=== PATIENT | male | born 1995 | race Caucasian/White ===

== ENCOUNTER 2019-02-15 05:14 | Day surgery (SDC) | payer OTHER ==
[2019-02-15] VITALS (14 sets, daily range): BP systolic 110–146; BP diastolic 56–83; PULSE 82–100; RESP 15–33; Ht 167.6 cm; Wt 72.0 kg
[~2019-02-15] VITALS: Ht 167.6 cm; Wt 72.0 kg
[~2019-02-15 05:14] MED LIST: BUPIVACAINE 0.25% (MPF) 30 ML INJ INJ ONE; POLYMYXIN/BACITRACIN 1L IRRIG IRR ONE
[2019-02-15] MEDS ORDERED: SOD CHLORIDE 0.9% 1,000 ML IV SCH (06:30)
[2019-02-15] MEDS ORDERED: MIDAZOLAM 1 MG/ML 2 ML INJ ONE (06:50)
[2019-02-15] MEDS ORDERED: FENTAnyl 50 MCG/ML VIAL ONE ×2 (06:50→07:55)
[2019-02-15] MEDS ORDERED: LIDOCAINE 2% (SDV) 5 ML INJ ONE (06:50)
[2019-02-15] MEDS ORDERED: PROPOFOL 20 ML ONE (06:50)
[2019-02-15] MEDS ORDERED: CEFAZOLIN 1 GM INJ ONE (06:50)
[2019-02-15] MEDS ORDERED: BUPIVACAINE 0.25% (MPF) 30 ML INJ ONE (07:13)
[2019-02-15] MEDS ORDERED: ROPIVACAINE 0.5 % 30 ML VIAL ONE (07:34)
[2019-02-15] MEDS ORDERED: FAMOTIDINE 20 MG INJ ONE (07:50)
[2019-02-15] MEDS ORDERED: ONDANSETRON 4 MG INJ ONE (07:50)
[2019-02-15] MEDS ORDERED: METOCLOPRAMIDE 10 MG INJ ONE (07:50)
[2019-02-15] MEDS ORDERED: DEXAMETHASONE 4 MG/ML 5 ML INJ ONE (07:50)
[2019-02-15] MEDS ORDERED: POLYMYXIN/BACITRACIN 1L IRRIG IRR ONE (08:12)
[2019-02-15] MEDS ORDERED: POLYMYXIN/BACITRACIN 1L IRRIG ONE (08:14)
[2019-02-15] MEDS ORDERED: KETOROLAC 30 MG INJ ONE (08:24)
[2019-02-15] MEDS ORDERED: ONDANSETRON 4 MG INJ IV PRN (08:30)
[2019-02-15] MEDS ORDERED: OXYCODONE/ACETAMINOPHEN (5/325) TAB PO PRN ×2 (08:30)
[2019-02-15] MEDS ORDERED: HYDROmorphONE 1 MG/5 ML IV SYRINGE IV PRN ×3 (08:30)
[2019-02-15] MEDS ORDERED: MEPERIDINE 25 MG INJ IV PRN (08:30)
[2019-02-15] MEDS ORDERED: HYDROCODONE/APAP (5/325) TAB PO ONE (09:00)
== END 2019-02-15 10:15 | disposition home or self-care (01) ==
LOC: SDS 05:14
PROVIDERS: ATTEND Surgery
DX: K40.90 Unilateral inguinal hernia, without obstruction or gangrene, not specified as recurrent (principal)
CPT/HCPCS: 49507; C1781; J0690; J1100; J1170; J1885; J2175; J2250; J2405; J2765; J2795; J3010; Z7512; Z7610